=== PATIENT | female | born 1960 | race Caucasian/White ===

== ENCOUNTER → 2017-08-17 10:00 | Outpatient (CLI) | payer SELFPAY ==
--- NOTE | 2017-08-17 10:00 | DT_ITS ---
This patient was seen during an EMR downtime August 15, 2017 - August 22, 2017. This patient may have a combination of paper and electronic documentation or all paper documentation. All documentation is viewable within the e-chart portion of [facility] for each patient visit.
--- NOTE | 2017-08-17 13:05 | RAD_ITS ---
STUDY: X-RAY CHEST REASON FOR EXAM: Female, 56 years old. Shortness of breath. Abnormal stress test. TECHNIQUE: Frontal and lateral views of the chest. COMPARISON: None. FINDINGS: The lungs are hyperexpanded. There is no demonstrated pleural abnormality. Normal size heart. Normal mediastinum and gricelda. Normal visualized pulmonary arteries. Normal visualized aortic arch and descending thoracic aorta. Normal visualized thoracic spine. Normal visualized ribs, clavicles, and shoulders. There is no demonstrated abnormality of the visualized soft tissue structures of the upper abdomen. RAD/Chest PA and Lateral IMPRESSION: Hyperexpansion. No acute pathology. Electronically Signed: Harvey Murcia MD at 11:15 EDT , Service support ,
--- NOTE | 2017-08-17 15:11 | STE_ITS ---
Reason For Study: CHEST PAIN Stress Results Protocol: Kenneth Protocol Maximum Predicted HR: 165 bpm Target HR: 140 bpm% Max imum Predicted HR: 88 % DurationHeart Rate Stage (mm:ss) (bpm) BP BASELINE 71 136/82 STAGE 1 3:00 11 5 140/80 STAGE 2 3:00 13 9 144/78 STAGE 3 1:00 14 6 / RECOVERY 81 120/80 Stress Duration: 7:00 mm:ss Maximum Stress HR: 146 bpm Baseline Echocardiogram Findings The estimated ejection fraction is 65 %. Stress Echo Wall motion Data Resting WMIntermediate WMStress WM Resting Wall Motion No regional wall motion abnormalities noted. EKG Data The baseline ECG displays normal sinus rhythm. ABNORMAL INFERIOR/LATERAL ST WAVE DEPRESSION. Interpretation Summary 1) ABNORMAL ADEQUATE TREADMILL/ECHO 2) POSITIVE FOR ISCHEMIA BY ECG AND ECHO 3) PATIENT DEVELOPED ST DEPRESSION AND POSSIBLE INFERIOR HYPOKINESIS AT PEAK EXERCISE 4) NORMAL BLOOD PRESSURE RESPONSE TO EXERCISE 5) FREQUENT PAC'S 6) BELOW AVERAGE EXERCISE CAPACITY FOR AGE 7) TEST TERMINATED DUE TO SEVERY DYSPNEA 8) FINAL LVEF= 55% The estimated ejection fraction is 65 %. Ordering Physician: Ricki Mendez MD Referring Physician: Ricki Mendez MD Performed By: Yamilex Barclay RDCS, RVT
--- NOTE | 2017-08-17 17:07 | ECHOD_ITS ---
Reason For Study: AFIB Procedure This was a 2D Doppler, Color Flow transthoracic echocardiogram. Exam performed in department. Left Ventricle Normal size and thickness. The estimated ejection fraction is 65 %. Normal diastology for age. No regional wall motion abnormalities noted. Right Ventricle Normal size and thickness. Normal systolic function. Atria Normal left atrium. Normal right atrium. Normal atrial septum. Mitral Valve The mitral valve is structurally normal. No prolapse or stenosis seen. Mild (1+) mitral valve insufficiency. Tricuspid Valve Normal tricuspid valve. Trivial tricuspid valve insufficiency. Right ventricular systolic pressure estimated to be 26 mmHg. Aortic Valve Trisinus/trileaflet aortic valve. Mild diffuse aortic valve thickening. Pulmonic Valve Normal pulmonic valve. Great Vessels Normal aortic root. Normal arch. Normal inferior vena cava. Inferior vena cava collapse with sniff. Pericardium/Pleural No pericardial effusion. MMode/2D Measurements & Calculations LVIDd: 4.7 cm IVSd: 0.84 cm LVOT diam: 2.0 cm LVIDs: 3.2 cm LVPWd: 0.89 cm LVOT area: 3.2 cm2 RVDd: 3.3 cm FS: 31.0 % Ao root diam: 2.9 cm LAV(MOD-bp): 55.9 ml EDV(MOD-sp4): 91.0 ml LA dimension: 3.3 cm LAV(MOD-bp) Indexed: 32.7 ml/m2 ESV(MOD-sp4): 30.8 ml LAV(MOD-sp2): 51.5 ml EF(MOD-sp4): 66.2 % LAV(MOD-sp4): 50.6 ml EDV(MOD-sp2): 65.0 ml SV(MOD-sp4): 60.2 ml SV(MOD-sp2): 35.1 ml EF(MOD-sp2): 54.0 % LA A4 area: 19.2 cm2 RA A4 area: 12.5 cm2 Doppler Measurements & Calculations MV E max emigdio: 87.6 cm/sec Lat Peak E' Emigdio: 11.9 cm/sec Med Peak E' Emigdio: 7.9 cm/sec MV A max emigdio: 75.2 cm/sec E/E' lat: 7.4 E/E' med: 11.1 MV E/A: 1.2 Ao V2 max: 164.8 cm/sec LV V1 max: 113.5 cm/sec SV(LVOT): 81.2 ml Ao max P.9 mmHg LV V1 max P.2 mmHg Ao V2 mean: 113.9 cm/sec LV V1 mean P.3 mmHg Ao mean P.8 mmHg LV V1 mean: 70.1 cm/sec Ao V2 VTI: 39.2 cm LV V1 VTI: 25.2 cm JEANETTE(I,D): 2.1 cm2 JEANETTE(V,D): 2.2 cm2 TR max emigdio: 229.0 cm/sec TR max P.0 mmHg Interpretation Summary The estimated ejection fraction is 65 %. Normal diastology for age. Mild (1+) mitral valve insufficiency. Trivial tricuspid valve insufficiency. Right ventricular systolic pressure estimated to be 26 mmHg. There is no comparison study available. Ordering Physician: Ricki Mendez Referring Physician: PEBBLES MONK Performed By: Yamilex Barclay, KAVEH, RVT
== END ==
PROVIDERS: Family Provider Family Medicine; PCP Family Medicine; Visit Provider Internal Medicine Cardiovascular Disease
DX: R07.9 Chest pain, unspecified (principal); I47.1 Supraventricular tachycardia; I10 Essential (primary) hypertension; I48.91 Unspecified atrial fibrillation; R06.02 Shortness of breath
CPT/HCPCS: 71046; 93017; 93306; 93350

== ENCOUNTER → 2017-08-17 12:47 | Outpatient (CLI) | payer SELFPAY ==
--- NOTE | 2017-08-17 12:47 | DT_ITS ---
This patient was seen during an EMR downtime August 15, 2017 - August 22, 2017. This patient may have a combination of paper and electronic documentation or all paper documentation. All documentation is viewable within the e-chart portion of [facility] for each patient visit.
[2017-08-23 17:04] LABS: Hemoglobin 12.4 g/dl (12.0-15.0); Mean Corp Hgb Conc 31.8 g/gl (32-36); Mean Corpuscular Hgb 29.2 pg (27.0-32.0); Mean Corpuscular Volume 91.8 fL (81-99); Mean Platelet Vol. 9.1 fl (6.2-12.0); Platelet Count 313 K/mm3 (150-450); RBC Distribution Width CV 13.5 % (11.6-14.6); RBC Distribution Width SD 44.5 fl (35.1-43.9); Red Blood Count 4.25 M/mm3 (4.2-5.4); Scan Indicated on CBC? Y/N NO; White Blood Count 4.9 K/mm3 (4.4-11.0)
[2017-08-23 17:05] LABS: International Normalized Ratio 1.1; Partial Thromboplast Time 33.7 Seconds (24.1-36.2); Prothrombin Time (Protime)PT. 14.3 SECONDS (11.7-14.9)
[2017-08-23 17:06] LABS: BUN 6 mg/dL (7-18); BUN/Creat Ratio 8.8 RATIO (10-20); Creatinine, Serum 0.68 mg/dL (0.55-1.02); EST Glomerular Filtration Rate 95 mL/min (>60); Est Glom Filt Rate - Afr Amer 115 mL/min (>60); Glucose 120 mg/dL (74-106)
[2017-08-23 17:07] LABS: Anion Gap 7 (5-15); Calcium,Total 9.4 mg/dL (8.5-10.1); Chloride 103 mmol/L (98-107); Potassium 3.7 mmol/L (3.5-5.1); Sodium Level 141 mmol/L (136-145)
== END ==
PROVIDERS: Visit Provider Internal Medicine Cardiovascular Disease
DX: Z01.818 Encounter for other preprocedural examination (principal); R94.39 Abnormal result of other cardiovascular function study
CPT/HCPCS: 36415; 80048; 85027; 85610; 85730

== ENCOUNTER → 2017-08-19 06:53 | Day surgery (SDC) | payer SELFPAY ==
--- NOTE | 2017-08-19 06:53 | DT_ITS ---
This patient was seen during an EMR downtime August 15, 2017 - August 22, 2017. This patient may have a combination of paper and electronic documentation or all paper documentation. All documentation is viewable within the e-chart portion of [email or web address] for each patient visit.
--- NOTE | 2017-08-19 16:57 | CL.D_ITS ---
Patient Name: RUTHANN AMADO Study Date: 08/19/2017 Performing: Rikci Mendez MD Ht: 66 inches 167.64 cm : 1960 Wt: 144 lbs 65.317 kg Age: 56 Gender: female BSA: 1.74 PROCEDURE(S) PERFORMED SN59-ABH/COR/LV CLINICAL PROFILE AND INDICATIONS Indications: Suspected CAD, Worsening Angina Heart Failure: None Stress/Imaging Stress Echocardiogram: Yes Result: Positive Low RiskStress Echocardiogram: Positiv e Low Risk Angina Classification Anginal Classification w/in 2 Weeks: CCS I CAD Presentations: Symptom unlikely to be ischemic. 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 RECOMMENDATIONS D/c asa/plavix, restart Eliquis on 08/22/17 Management as per referring Cops DESCRIPTION OF PROCEDURE The patient arrived to the procedure lab. The risks and benefits of the procedure as well as a full d escription of our services here and current unavailability of surgical backup were fully explained to the patient and/or their significant other prior to the catheterization. The Timeout was completed, verifying the correct patient and procedure. The patient's procedural site was prepped and draped in the usual fashion. Local anesthetic was given subcutaneously to right groin region with Lidocaine 2%. Using a modified Seldinger technique, arterial access was obtained via the right femoral artery, a 4 Fr sheath was inserted Left Coronary Artery selective angiography was performed in multiple views us ing a 4 Fr. JL5 catheter. Right Coronary Artery selective angiography was then performed in multiple views using a 4 Fr. 3DRC catheter. Left Ventriculography was performed in MARTINS projection using a 4 Fr . Pigtail catheter. LV to AO pullback pressures were then recorded.The arterial sheath was pulled and manual compression applied until hemostasis is achieved.. The arterial sheath was pulled and manual compression applied until hemostasis is achieved. CORONARY ANGIOGRAPHY DOMINANCE: Right Dominant LEFT HEART ASSESSMENT Left Ventricular Ejection Fraction: by LV Gram 65 % Normal LV wall motion Normal Left Ventricular systolic function Normal Left Ventricular systolic function Normal Left Ventricular End Diastolic Pressure LEFT MAIN: Angiographically normal LEFT ANTERIOR DECENDING ARTERY: Angiographically normal CIRCUMFLEX ARTERY: Angiographically normal RIGHT CORONARY ARTERY: Angiographically normal COMPLICATIONS PROCEDURE MEDICATIONS Versed 1 mg IV Oxygen: 2 L/min via nasal cannula Nitro 200 mcg IC 08/19/2017 08:12:01 SUMMARY OF HEMODYNAMIC DATA Time AIR REST ECG 07:54:48 AO 150/68 (102) SA 08:09:18 LV 144/-21, 6 08:17:31 LV 153/-23, 8 08:17:38 LVp 141/-19, 5 08:18:05 AOp 149/60 (100) 08:18:10 Signed By Ricki Mendez MD On 08/19/2017 08:24:32 Ricki Mendez MD
== END ==
PROVIDERS: Family Provider Family Medicine; PCP Family Medicine; Visit Provider Internal Medicine Cardiovascular Disease
DX: R94.39 Abnormal result of other cardiovascular function study (principal); I48.0 Paroxysmal atrial fibrillation; I10 Essential (primary) hypertension; E78.5 Hyperlipidemia, unspecified; R06.02 Shortness of breath; Z79.01 Long term (current) use of anticoagulants; Z79.899 Other long term (current) drug therapy
CPT/HCPCS: 36415; 80048; 85027; 85610; 93458; J7040; Q9967; C1769; C1894

== ENCOUNTER → 2018-02-13 10:52 | Outpatient (REF) | payer SELFPAY ==
[2018-02-07 15:02] VITALS: BMI 22.2
== END ==
LOC: CVS 10:52
PROVIDERS: Family Provider Family Medicine; PCP Family Medicine; Referring Provider Internal Medicine Cardiovascular Disease; Visit Provider Internal Medicine Cardiovascular Disease
DX: I48.0 Paroxysmal atrial fibrillation (principal); I47.1 Supraventricular tachycardia
CPT/HCPCS: 93270